=== PATIENT | male | born 1980 | race Caucasian/White ===

== ENCOUNTER 2020-10-22 16:42 | Emergency (ER) | payer OTHER ==
[~2020-10-22] VITALS: Ht 182.9 cm; Wt 90.7 kg
[~2020-10-22 16:42] MED LIST: IBUPROFEN 800800 M1 PO; MEDROLDOSEPACK PO; NOHOMEMEDICATIONS
[2020-10-22] MEDS ORDERED: KEFLEX500 M1 PO (17:20)
[2020-10-22 17:34] VITALS: BP 140/70
== END 2020-10-22 17:34 | disposition home or self-care (01) ==
LOC: M.ERS 16:42
DX: S61.011A Laceration without foreign body of right thumb without damage to nail, initial encounter (principal); F17.210 Nicotine dependence, cigarettes, uncomplicated; Z98.890 Other specified postprocedural states; W45.8XXA Other foreign body or object entering through skin, initial encounter; Y93.89 Activity, other specified; Y92.89 Other specified places as the place of occurrence of the external cause; Y99.9 Unspecified external cause status

== ENCOUNTER 2020-10-27 02:22 | Emergency (ER) | payer OTHER ==
[~2020-10-27] VITALS: Ht 182.9 cm; Wt 88.5 kg
[~2020-10-27 02:22] MED LIST changes: +KEFLEX500 M1 PO
[2020-10-27 02:57] LABS: ABSOLUTE BASOPHILS 0.1 thou/uL (0.0-0.2); ABSOLUTE EOSINOPHILS 0.5 thou/uL (0.0-0.7); ABSOLUTE LYMPHOCYTES 2.8 thou/uL (0.8-5.3); ABSOLUTE MONOCYTES 0.9 thou/uL (0.0-1.2); ABSOLUTE NEUTROPHILS 6.2 thou/uL (1.6-8.1); BASOPHILS 0.9 %; EOSINOPHILS 5.1 %; HEMATOCRIT 44.6 % (42.0-52.0); HEMOGLOBIN 14.9 gm/dL (14.0-18.0); LYMPHOCYTES 26.2 %; MCH 32.5 pg (26.0-34.0); MCHC 33.4 g/dL (28.0-37.0); MCV 97.1 fL (80.0-100.0); MONOCYTES 8.9 %; MPV 7.6 fl. (7.2-11.1); NUCLEATED RBCS 0 /100WBC; PLATELET COUNT* 275 thou/uL (150-400); POLYS 58.9 %; RBC 4.59 mil/uL (4.50-6.00); RDW-CV 13.6 % (10.5-14.5); WBC 10.6 thou/uL (4.0-11.0)
[2020-10-27 03:02] LABS: CALCIUM 9.1 mg/dL (8.5-10.1); CREATININE 0.9 mg/dL (0.6-1.3); POTASSIUM 3.9 mmol/L (3.5-5.1)
[2020-10-27 03:06] LABS: ALBUMIN 3.9 g/dL (3.4-5.0); TOTAL BILIRUBIN 0.1 mg/dL (<0.1-1.0); TOTAL PROTEIN 7.3 g/dL (6.4-8.2)
[2020-10-27 03:07] LABS: URINE BILIRUBIN NEGATIVE (Negative); URINE BLOOD 3+ (Negative); URINE CLARITY CLEAR; URINE COLOR YELLOW; URINE GLUCOSE-RANDOM NEGATIVE (Negative); URINE KETONES NEGATIVE (Negative); URINE LEUKOCYTES-REFLEX NEGATIVE (Negative); URINE NITRITE-REFLEX NEGATIVE (Negative); URINE PROTEIN 1+ (Negative); URINE SPECIFIC GRAVITY >= 1.030 (1.005-1.030); URINE UROBILINOGEN 0.2 E.U./dl (0.2-1.0)
[2020-10-27 03:41] LABS: CASTS None Seen /LPF (None Seen); SQUAMOUS 0-3 Few /LPF (0-3)
[2020-10-27 03:43] LABS: BACTERIA-REFLEX 1-9 Few /HPF (None Seen)
[2020-10-27 03:44] LABS: CALCIUM OXALATE >10 Many /LPF (None Seen)
[2020-10-27] MEDS ORDERED: PERCOCET 5-3251 EACH PO (04:02)
[2020-10-27] MEDS ORDERED: CIPROFLOXACIN500 M1 PO (04:02)
[2020-10-27] MEDS ORDERED: FLOMAX0.4 MG PO (04:02)
[2020-10-27 04:14] VITALS: BP 129/74
== END 2020-10-27 04:15 | disposition home or self-care (01) ==
LOC: M.ERS 02:22
PROVIDERS: Family Medicine
DX: N20.0 Calculus of kidney (principal); F17.210 Nicotine dependence, cigarettes, uncomplicated